=== PATIENT | male | born 1995 | race African-American/Black ===

== ENCOUNTER 2024-03-14 14:46 | Emergency (ER) | payer OTHER ==
[~2024-03-14] VITALS: Ht 182.9 cm; Wt 183.1 kg
[2024-03-14] MEDS ORDERED: PROZAC10 MG PO (15:06)
[2024-03-14] MEDS ORDERED: KETOROLAC TROMETHAMINE 30 MG/ML VIAL IV ONE (15:30)
[2024-03-14 15:36] LABS: BASOPHILS 1.1 % (0-2); EOSINOPHILS 4.3 % (0-6); LYMPHOCYTES 16.7 % (24-44); MCH 29.2 (27-36); MCHC 33.3 g/dl (30-36); MCV 87.5 fl (81-99); NEUTROPHILS 68.9 % (39-80); PLATELET COUNT 319 K/uL (140-440); RBC 5.15 M/ul (4.3-5.7); RDW 13.6 (10.5-15.0)
[2024-03-14 15:48] LABS: ALBUMIN/GLOBULIN RATIO 0.87 (1.1-2.4); ANION GAP 11.8 (7-21); BILIRUBIN, TOTAL 0.7 ng/dL (0.2-1.0); BUN/CREATININE RATIO 16.23 (6.0-28.6); CALCIUM 9.8 mg/dL (8.5-10.1); CREATININE, SERUM 1.17 mg/dL (0.70-1.30); POTASSIUM 3.8 mmol/L (3.5-5.1); PROTEIN, TOTAL 8.6 g/dL (6.4-8.2)
[2024-03-14 16:13] LABS: INFLUENZA B NAA NEGATIVE (NEGATIVE); RESPIRATORY SYNCYTIAL VIR NAA NEGATIVE (NEGATIVE)
[2024-03-14] MEDS ORDERED: VENTOLIN HFA18 GM INH (16:48)
[2024-03-14 17:00] VITALS: BP 146/90
--- NOTE | 2024-03-14 21:13 | EKG ---
[facility] [address] [facility] [place] [address] Signed Sinus tachycardia Otherwise normal ECG No previous ECGs available Confirmed by Everardo Blake MD () on 03/14/2024 9:13:40 PM Electronically Signed By: EVERARDO BLAKE MD 03/14/242112 PATIENT NAME: KADE WILLINGHAM Electrocardiogram DATE OF : [birth year] PHYSICIAN: EVERARDO BLAKE MD REPORT #: [id number] REPORT IS CONFIDENTIAL AND NOT TO BE RELEASED WITHOUT AUTHORIZATION
== END 2024-03-14 17:00 | disposition home or self-care (01) ==
LOC: ED 14:46
PROVIDERS: Emergency Medicine
DX: J40 Bronchitis, not specified as acute or chronic (principal); J45.909 Unspecified asthma, uncomplicated; Z79.899 Other long term (current) drug therapy
CPT/HCPCS: 36415; 71045; 80053; 83880; 84484; 85025; 85379; 87502; 93005; 93010; 96374; 99284-25; J1885; U0002